=== PATIENT | female | born 1940 | race Caucasian/White ===

== ENCOUNTER 2017-02-18 06:59 | Day surgery (SDC) | payer MEDICARE ==
[~2017-02-18 06:59] MED LIST: Acetaminophen TAB* 325 MG PO PRN; Buffered Lidocaine 0.9% SYRIN* 5 ML/SYR SYRINGE INTRADERM ONE
[2017-02-18] MEDS ORDERED: Midazolam* 1 MG/ML 2 ML VIAL (2 MG) ONE ×2 (08:00→08:54)
[2017-02-18] MEDS ORDERED: fentaNYL* 50 MCG/ML 2 ML VIAL (100 MCG VIAL) ONE (08:00)
[2017-02-18] MEDS ORDERED: Trypan Blue 0.06% SOL* 0.5 ML BTL ONE (08:48)
[2017-02-18] MEDS ORDERED: Metoprolol Tartrate IV* 1 MG/ML 5 ML VIAL ONE (09:10)
[2017-02-18 09:55] VITALS: BP 149/60
[2017-02-18] MEDS ORDERED: Neomycin/Polymy/Dex OPTH.SUSP* MAXITROL 0.1% 5 ML ONE (10:17)
[2017-02-18] MEDS ORDERED: Phenylephrine 2.5% OPTH.SOL* 2 ML BTL ONE (10:17)
[2017-02-18] MEDS ORDERED: Cyclopentolate 1% OPTH.SOL* 2 ML BTL ONE (10:17)
[2017-02-18] MEDS ORDERED: Lidocaine 2% EPI 1:200000 MPF* 20 ML VIAL ONE (10:17)
[2017-02-18] MEDS ORDERED: Ketorolac 0.5% OPHTH (NF) 0.5 % 5 ML BTL ONE (10:17)
[2017-02-18] MEDS ORDERED: Povidone Iodine 5% OPTH* 30 ML BTL ONE (10:17)
[2017-02-18] MEDS ORDERED: Lidocaine 1% MPF* 2 ML VIAL ONE (10:17)
[2017-02-18] MEDS ORDERED: acetaZOLAMIDE TAB* 250 MG ONE (10:17)
--- NOTE | 2017-02-18 10:45 | OP ---
ADDENDUM: OPERATIVE REPORT: Because the cataract is a white cataract, needed to stain the anterior capsule prior to capsulorrhexis using Vision Blue. The indication for complex cataract surgery is white cataract requiring capsular stain. [id number]/[facility] #: [id number] [facility]
--- NOTE | 2017-02-18 10:45 | OP ---
OPERATIVE NOTE: DATE OF OPERATION: 02/18/17 DATE OF : 44 SURGEON: Micky Beltran M.D. PREOPERATIVE DIAGNOSIS: Cataract, right eye. POSTOPERATIVE DIAGNOSIS: Cataract, right eye. OPERATIVE PROCEDURE: Phacoemulsification, right eye, with IOL. PROCEDURE: The patient was brought to the operating room after being given 1/2% Alcaine with epinep hrine drops in the preoperative area. The eye was prepped and draped in the usual sterile fashion. Sterile drape and eyelid speculum were placed. Again, topical 1/2% Alcaine with epinephrine was gi briana. A paracentesis incision was made at the 9 o'clock position with the No.75 blade. Clear cornea incision 2.2 x 2.2-mm was created at the 12 o'clock position starting at the anterior limbus using the 2.2-mm keratome. The anterior chamber was irrigated with 0.4 mL of 1% non-preservative intracam eral lidocaine and filled with DisCoVisc. A capsulorrhexis was completed using the cystotome and th e Utrata forceps. Hydrodissection was performed with balanced salt solution. The lens nucleus was r emoved with the Phacoemulsification handpiece without incident. Cortex was removed with the irrigat ion-aspiration handpiece. The capsular bag was re-inflated using DisCoVisc and an [id number] implant was inserted with the shooter. The irrigation-aspiration handpiece was used to remove all residual DisCoVisc. The eye was refilled with balanced salt solution and the wound checked and found to be watertight. Topical Maxitrol drops were given. [id number]/[facility] #: [id number]
[2017-02-18] MEDS ORDERED: Proparacaine 0.5% OPHTH.SOL* 15 ML BTL ONE (15:27)
[2017-02-18] MEDS ORDERED: Buffered Lidocaine 0.9% SYRIN* 5 ML/SYR SYRINGE ONE (15:27)
== END 2017-02-18 09:52 | disposition home or self-care (01) ==
LOC: OREAST 06:59
PROVIDERS: ATTEND Specialist
DX: H25.811 Combined forms of age-related cataract, right eye (principal); I10 Essential (primary) hypertension; K58.0 Irritable bowel syndrome with diarrhea
CPT/HCPCS: A9270-GY; J2250; J3010; V2632

== ENCOUNTER 2019-02-26 23:27 | Emergency (ER) | payer MEDICARE ==
[2019-02-26] MEDS ORDERED: NS 0.9% 1000 ML** 2,000 ML IV ONE (23:39)
--- NOTE | 2019-02-26 23:55 | ED ---
GI/ HPI - HPI Summary HPI Summary: This patient is a 79 year old F presenting to [facility] by EMS with a chief complaint of constant diarrhea since 1999 today. Pt has PMHx of IBS, and had a severe flare up today at 1999. It began with bad abdominal cramps after eating a salad, which led to diarrhea. Pt reports feeling nausea, but not vomiting ( she had a procedure done that impairs her ability to vomit). Pt denies blood in diarrhea. Per triage, pt had a dizzy spell and collapsed with near syncope. - History of Current Complaint Chief Complaint: EDSyncope Time Seen by Provider: 02/26/19 23:35 Stated Complaint: SYNCOPE PER EMS Hx Obtained From: Patient Onset/Duration: Started Hours Ago Timing: Constant Current Severity: None Pain Intensity: 0 Location of Pain: Diffuse Pain Characteristics: Cramping Associated Signs and Symptoms: Positive: Nausea, Diarrhea, Other: - dizziness, and syncope. Negative: Vomiting, Blood w/Stool Aggravating Factor(s): Food Alleviating Factor(s): Nothing - Allergy/Home Medications Allergies/Adverse Reactions: Allergies Allergy/AdvReac Type Severity Reaction Status Date / Time egg Allergy Unknown Verified 02/26/19 23:34 Reaction Details Home Medications: Home Medications Diphenoxylate HCl/Atropine 1 tab PO Q6H 02/26/19 [History Confirmed 02/27/19] PMH/Surg Hx/FS Hx/Imm Hx Cardiovascular History: Reports: Hx Hypertension GI History: Reports: Hx Hiatal Hernia - s/p Fidel, Hx Irritable Bowel Sensory History: Reports: Hx Cataracts - right Denies: Hx Contacts or Glasses, Hx Hearing Aid Opthamlomology History: Reports: Hx Cataracts - right Denies: Hx Contacts or Glasses Psychiatric History: Reports: Hx Anxiety - Cancer History Hx Chemotherapy: No Hx Radiation Therapy: No - Surgical History Surgery Procedure, Year, and Place: tubal ligation, hiatal hernia sx. left eye cataract with IOL Hx Anesthesia Reactions: No - Immunization History Date of Tetanus Vaccine: unk Date of Influenza Vaccine: none Infectious Disease History: No Infectious Disease History: Denies: Traveled Outside the [place] in Last 30 Days - Family History Known Family History: Negative: Hypertension, Diabetes - Social History Alcohol Use: Occasionally Substance Use Type: Reports: None Smoking Status (MU): Never Smoked Tobacco Review of Systems Negative: Fever Positive: Abdominal Pain, Diarrhea, Nausea. Negative: Vomiting, Other - Blood in Stool Neurological: Other - dizzy Positive: Syncope All Other Systems Reviewed And Are Negative: Yes Physical Exam - Summary Physical Exam Summary: Appearance: Well-appearing, Well-nourished, lying in bed comfortably Skin: Warm, dry, no obvious rash Eyes: sclera anicteric, no conjunctival pallor ENT: mucous membranes moist, pharynx appears normal Neck: Supple, nontender Respiratory: Clear to auscultation, no signs of respiratory distress Cardiovascular: Normal S1, S2. No murmurs. Normal distal pulses in tibial and radial bilaterally. Abdomen: Soft, nontender, normal active bowel sounds present Musculoskeletal: Normal, Strength/ROM Intact Neurological: A&Ox3, awake and alert, mentation is normal, speech is fluent and appropriate Psychiatric: affect is normal, does not appear anxious or depressed Triage Information Reviewed: Yes Vital Signs On Initial Exam: Initial Vitals Temp Pulse Resp BP Pulse Ox 97 F 59 15 133/67 97 02/26/19 23:32 02/26/19 23:32 02/26/19 23:32 02/26/19 23:32 02/26/19 23:32 Vital Signs Reviewed: Yes Procedures - Sedation Patient Received Moderate/Deep Sedation with Procedure: No Diagnostics - Vital Signs Vital Signs Temp Pulse Resp BP Pulse Ox 02/26/19 23:32 97 F 59 15 133/67 97 - Laboratory Result Diagrams: 02/26/19 23:56 02/26/19 23:56 Lab Statement: Any lab studies that have been ordered have been reviewed, and results considered in the medical decision making process. - EKG 23:57 Cardiac Rate: NL EKG Rhythm: Sinus Rhythm Summary of EKG Findings: EKG at 23:57 reveals NSR at 68 BPM, P waves, QRS complex, and T waves are within normal limits, T waves and intervals are normal , no ischemic changes. This is a normal EKG. ED Physician has reviewed and interpreted this EKG. Re-Evaluation - Re-Evaluation First Eval Re-Evaluation Time: 01:15 Comment: Discussed results and plan of care GIGU Course/Dx - Course Course Of Treatment: This patient is a 79 year old F presenting to [facility] by EMS with a chief complaint of constant diarrhea since 1999 today. Pt has PMHx of IBS , and had a severe flare up today at 1999. It began with bad abdominal cramps after eating a salad, which led to diarrhea. Pt reports feeling nausea, but not vomiting (she had a procedure done that impairs her ability to vomit). Pt denies blood in diarrhea. Per triage, pt had a dizzy spell and collapsed with near syncope. Physical exam findings are nml. Blood work obtained. WBC is 14.4 , Carbon Dioxide is 20, BUN/Creatinine Ratio is 27.4, Glucose is 167. EKG at 23 :57 reveals NSR at 68 BPM, P waves, QRS complex, and T waves are within normal limits, T waves and intervals are normal, no ischemic changes. This is a normal EKG. ED Physician has reviewed and interpreted this EKG. In the ED course the patient was given fluids. Patient will be discharged. The patient is agreeable with this plan. - Diagnoses Provider Diagnoses: Diarrhea, Syncope Discharge ED - Sign-Out/Discharge Documenting (check all that apply): Patient Departure - Discharge - Discharge Plan Condition: Improved Disposition: HOME Prescriptions: Ondansetron ODT TAB* [Zofran 4 MG Odt TAB*] 8 mg PO Q6H PRN #10 tab.odt PRN Reason: Nausea Patient Education Materials: Syncope (ED), Acute Diarrhea (ED) Referrals: Micky Billings MD [Primary Care Provider] - 3 Days (if not improving) Additional Instructions: Make sure to rest and get plenty of fluids. Be careful when getting up to avoid further fainting. - Billing Disposition and Condition Condition: IMPROVED Disposition: Home - Attestation Statements Document Initiated by Caden: Yes Documenting Scribe: Cira Castellano Provider For Whom Caden is Documenting (Include Credential): Jewel Greene MD Scribe Attestation: Cira Bellamy, scribed for Jewel Greene MD on 02/27/19 at 2343. Scribe Documentation Reviewed: Yes Provider Attestation: The documentation as recorded by the Cira moreno accurately reflects the service I personally performed and the decisions made by me, Jewel Greene MD Status of Scribe Document: Viewed
[2019-02-27 00:05] LABS: Hematocrit 43 % (35-47); Mean Corpuscular HGB Conc 32 g/dL (31-36); Mean Corpuscular Hemoglobin 29 pg (27-31); Mean Corpuscular Volume 91 fL (80-97); Red Blood Count 4.77 10^6 /uL (3.70-4.87); Red Cell Distribution Width 14 % (10-15); White Blood Count 14.4 10^3/uL (3.5-10.8)
[2019-02-27 00:18] LABS: Albumin 4.3 g/dL (3.2-5.2); Albumin/Globulin Ratio 1.3 (1-3); BUN/Creatinine Ratio 27.4 (8-20); Calcium 9.7 mg/dL (8.6-10.3); EGFR African American 79.6 (>60); EGFR Non-African American 65.7 (>60); Globulin 3.3 g/dL (2-4); Potassium 4.5 mmol/L (3.5-5.0); Total Bilirubin 0.4 mg/dL (0.2-1.0); Total Protein 7.6 g/dL (6.4-8.9)
[2019-02-27 01:17] LABS: ABS Eosinophils 0.2 10^3/ul (0-0.6); ABS Lymphocytes 1.3 10^3/ul (1.0-4.8); ABS Monocytes 1.3 10^3/ul (0-0.8); ABS Neutrophils 11.6 10^3/ul (1.5-7.7); Eosinophil % 1.4 %; Lymphocyte % 8.8 %; Platelet Count Platelets clumped. 10^3/uL (150-450)
[2019-02-27 01:40] VITALS: BP 130/62
== END 2019-02-27 01:40 | disposition home or self-care (01) ==
LOC: ED 23:27
DX: K58.0 Irritable bowel syndrome with diarrhea (principal); R55 Syncope and collapse; R11.0 Nausea; R42 Dizziness and giddiness; I45.2 Bifascicular block; I10 Essential (primary) hypertension; Z91.012 Allergy to eggs
CPT/HCPCS: 36415; 80053; 85025; 93005; 96360; 99283

== ENCOUNTER 2023-11-23 09:35 | Observation (INO) ==
[2023-11-23 11:12] LABS: ABS Eosinophils 0.9 10^3/uL (0.0-0.5); ABS Lymphocytes 0.6 10^3/uL (1.0-4.8); ABS Monocytes 0.7 10^3/uL (0.0-0.9); Eosinophil % 6.2 %; Lymphocyte % 3.9 %; Mean Corpuscular Hemoglobin 29.5 pg (27-33); Mean Corpuscular Hgb Conc 33.3 g/dL (31-36); Mean Corpuscular Volume 88.7 fL (80-97); Mean Platelet Volume 7.9 fL (7.5-11.2); Platelet Count 224 10^3/uL (150-450); Red Blood Count 4.73 10^6/uL (3.63-4.92); Red Cell Distribution Width 14.9 % (12-17); White Blood Count 15.3 10^3/uL (3.8-11.8)
[2023-11-23 11:39] LABS: ALT 11 U/L (7-52); AST 14 U/L (13-39); Albumin 3.8 g/dL (3.2-5.2); Albumin/Globulin Ratio 1.4 (1-3); Alkaline Phosphatase 45 U/L (35-149); Anion Gap 11 mmol/L (2-16); Blood Urea Nitrogen 22 mg/dL (6-24); CO2 Carbon Dioxide 26 mmol/L (22-32); Chloride 97 mmol/L (101-111); Creatinine, Serum 0.94 mg/dL (0.51-0.95); Globulin 2.8 g/dL (2-4); Glucose 159 mg/dL (70-100); Lipase < 10 U/L (11.0-82.0); Potassium 3.8 mmol/L (3.5-5.0); Sodium 134 mmol/L (135-145); Total Bilirubin 0.6 mg/dL (0.2-1.0); Total Protein 6.6 g/dL (6.4-8.9)
[2023-11-23] MEDS: Iohexol 350 (CONTRAST) 500 ML MDV IV ONE (12:20)
[2023-11-23 14:29] LABS: Urine Appearance Clear; Urine Bilirubin Negative (Negative); Urine Blood 2+ (Negative); Urine Color Light-Yellow; Urine Glucose Negative (Negative); Urine Ketones Trace (Negative); Urine Nitrite Negative (Negative); Urine Protein 1+ (>=30 mg/dL) (Negative); Urine Specific Gravity >1.050 (1.002-1.030); Urine Urobilinogen Negative (Negative)
[2023-11-23 14:36] LABS: Urine Bacteria Absent /HPF (Absent); Urine Red Blood Cell 2+(6-10/hpf) /HPF (0-Trace); Urine Squamous Epithelial Cell Present /HPF (Absent); Urine White Blood Cell Trace(0-5/hpf) /HPF (0-Trace)
[2023-11-23] MEDS: Lactated Ringers 1000 ml BAG 1,000 ML IV ONE (15:15)
[2023-11-23] MEDS: cefTRIAXone 1 gm/50 mL D5W 1 GM/50 ML BAG IV ONE (15:18)
[2023-11-23] MEDS: Ondansetron 4 mg VIAL 2 MG/ML 2 ml VIAL IV ONE (16:56)
[2023-11-23] MEDS: Acetaminophen IV 1 GM/100ML 1,000 MG/100 ML BAG IV ONE (17:09)
[2023-11-23] MEDS: NS 0.9% 1000 ml BAG 1,000 ML IV SCH ×3 (17:56→21:39)
[2023-11-23] MEDS: Piperacillin/Tazobac 3.375 BAG 3.375 GM/100 ML BAG IV ONE (18:25)
[2023-11-23 18:57] LABS: High Sensitivity Troponin 1 Hr 64 pg/mL (<15)
[2023-11-23] MEDS ORDERED: Zosyn per Pharmacy NOTE FOLLOW UP SCH (19:00)
[2023-11-23 19:16] LABS: Magnesium 1.5 mg/dL (1.9-2.7)
[2023-11-23] MEDS: Magnesium Sulf 4 GM/100 ML IV 4,000 MG/100 ML BAG IVPB ONE (19:51)
[2023-11-24 08:08] LABS: Hematocrit 38.5 % (35-45); Hemoglobin 12.8 g/dL (11.5-14.3); Mean Corpuscular Hemoglobin 29.7 pg (27-33); Mean Corpuscular Hgb Conc 33.3 g/dL (31-36); Mean Corpuscular Volume 89.1 fL (80-97); Mean Platelet Volume 8.3 fL (7.5-11.2); Platelet Count 163 10^3/uL (150-450); Red Blood Count 4.31 10^6/uL (3.63-4.92); Red Cell Distribution Width 15.1 % (12-17)
[2023-11-24 08:32] LABS: Calcium 8.1 mg/dL (8.6-10.3); Creatinine, Serum 1.05 mg/dL (0.51-0.95); Magnesium 2.7 mg/dL (1.9-2.7); Potassium 3.7 mmol/L (3.5-5.0); eGFR CKD-EPI 53.4 (>60)
[2023-11-24 09:50] LABS: ABS Basophils 0.1 10^3/uL (0.0-0.1); ABS Eosinophils 0.5 10^3/uL (0.0-0.5); ABS Lymphocytes 0.3 10^3/uL (1.0-4.8); ABS Monocytes 0.6 10^3/uL (0.0-0.9); ABS Neutrophils 11.4 10^3/uL (1.5-7.6); ABS Nucleated RBC 0.01 10^3/ul; Eosinophil % 4.1 %; Lymphocyte % 2.7 %; Nucleated Red Blood Cells % 0.1 %/100WBC (0.0-0.8); RBC Morphology Normal (Normal)
[2023-11-24] MEDS: Furosemide 20 mg/2 ml IV VIAL IV ONE (12:27)
[2023-11-24] MEDS ORDERED: Sulfur Hexaflouride MICROSPHR 25 MG VIAL ONE (15:17)
[2023-11-24] MEDS: Sulfur Hexaflouride MICROSPHR 25 MG VIAL IV ONE (15:18)
[2023-11-24] MEDS: ZOSYN 3.375 GM x ONE DOSE over 30 miuntes IV (18:17)
[2023-11-24] MEDS: ZOSYN 3.375 GM Q8H per EXTENDED INFUSION IV SCH (22:29)
[2023-11-25 06:01] LABS: ABS Eosinophils 1.6 10^3/uL (0.0-0.5); ABS Lymphocytes 1.6 10^3/uL (1.0-4.8); ABS Monocytes 0.6 10^3/uL (0.0-0.9); ABS Neutrophils 8.3 10^3/uL (1.5-7.6); ABS Nucleated RBC 0.01 10^3/ul; Eosinophil % 13.4 %; Hematocrit 35.3 % (35-45); Hemoglobin 11.8 g/dL (11.5-14.3); Lymphocyte % 13.5 %; Mean Corpuscular Hemoglobin 29.7 pg (27-33); Mean Corpuscular Hgb Conc 33.5 g/dL (31-36); Mean Corpuscular Volume 88.4 fL (80-97); Mean Platelet Volume 8.2 fL (7.5-11.2); Nucleated Red Blood Cells % 0.1 %/100WBC (0.0-0.8); Platelet Count 154 10^3/uL (150-450); Red Blood Count 3.99 10^6/uL (3.63-4.92); Red Cell Distribution Width 15.1 % (12-17); White Blood Count 12.1 10^3/uL (3.8-11.8)
[2023-11-25 06:25] LABS: Calcium 7.7 mg/dL (8.6-10.3); Creatinine, Serum 0.92 mg/dL (0.51-0.95); Magnesium 2.3 mg/dL (1.9-2.7); Potassium 3.6 mmol/L (3.5-5.0); eGFR CKD-EPI 62.6 (>60)
[2023-11-25] MEDS: Furosemide 40 mg/4 ml IV VIAL IV ONE (08:30)
[2023-11-25] MEDS: cefTRIAXone 1 gm/50 mL D5W 1 GM/50 ML BAG IV SCH (12:36)
[2023-11-26 06:27] LABS: ABS Lymphocytes 2.9 10^3/uL (1.0-4.8); ABS Monocytes 0.5 10^3/uL (0.0-0.9); ABS Neutrophils 4.9 10^3/uL (1.5-7.6); ABS Nucleated RBC 0.01 10^3/ul; Eosinophil % 19.1 %; Hematocrit 38.8 % (35-45); Hemoglobin 13.1 g/dL (11.5-14.3); Lymphocyte % 28.2 %; Mean Corpuscular Hemoglobin 29.8 pg (27-33); Mean Corpuscular Hgb Conc 33.9 g/dL (31-36); Mean Platelet Volume 8.5 fL (7.5-11.2); Nucleated Red Blood Cells % 0.1 %/100WBC (0.0-0.8); Platelet Count 200 10^3/uL (150-450); Red Cell Distribution Width 14.7 % (12-17); White Blood Count 10.4 10^3/uL (3.8-11.8)
[2023-11-26 06:48] LABS: Calcium 8.5 mg/dL (8.6-10.3); Creatinine, Serum 0.8 mg/dL (0.51-0.95); Magnesium 2.1 mg/dL (1.9-2.7); Potassium 3.3 mmol/L (3.5-5.0)
[2023-11-26 08:24] LABS: C Reactive Protein 69.79 mg/L (<8.01)
[2023-11-26] MEDS: Potassium Chlor 20 meq TAB.ER PO ONE (08:43)
[2023-11-26] MEDS: Furosemide 40 mg/4 ml IV VIAL IV ONE (08:45)
[2023-11-26 09:08] LABS: Ferritin 326.9 ng/mL (11-307)
[2023-11-26 09:15] VITALS: BP 117/72
[2023-11-26] MEDS: cefTRIAXone 1 gm/50 mL D5W 1 GM/50 ML BAG IV SCH (10:44)
[2023-11-26] MEDS: Potassium Chloride LIQUID 20 MEQ/15 ML LIQUID PO ONE (10:58)
[2023-11-26 17:01] LABS: Anaplasma phagocytophilum Negative (Negative); B. miyamotoi PCR, B Negative (Negative); Babesia divergens/MO-1 Negative (Negative); Babesia ducani Negative (Negative); Ehrlichia chaffeensis Negative (Negative); Ehrlichia ewingii/canis Negative (Negative); Ehrlichia muris eauclairensis Negative (Negative)
== END 2023-11-26 13:15 | disposition home or self-care (01) ==
LOC: ED 09:35 → EDHOLD 09:35 → SUATTDRO 17:08 → MED 19:41
PROVIDERS: ADMIT Hospitalist; ATTEND Student in an Organized Health Care Education/Training Program